=== PATIENT | female | born 1990 | race Caucasian/White ===

== ENCOUNTER 2023-02-09 14:45 | Emergency (ER) | payer SELFPAY ==
[~2023-02-09] VITALS: Ht 160 cm; Wt 77.0 kg
[2023-02-09 14:55] VITALS: BP 150/78
[2023-02-09] MEDS ORDERED: MAGNESIUM/ALUMINUM HYDROXIDE/SIMETHICONE 30ML UDC PO STA (15:14)
[2023-02-09] MEDS ORDERED: VISCOUS LIDOCAINE 2% 15 ML UDC PO STA (15:14)
[2023-02-09] MEDS ORDERED: ONDANSETRON 4MG ODT PO STA (15:14)
[2023-02-09] MEDS ORDERED: ACETAMINOPHEN 325MG TABLET PO ONE (15:15)
[2023-02-09] MEDS ORDERED: FAMOTIDINE 20MG TABLET PO ONE (15:15)
[2023-02-09 15:32] LABS: EOSINOPHILS % 4.4 % (0.0-5.0); HEMATOCRIT. 43.6 % (36.0-48.0); HEMOGLOBIN. 14.8 g/dL (12.0-16.0); LYMPHOCYTES % 38.7 % (20.0-50.0); MEAN CORPUSCULAR HEMOGLOBIN 29.9 pg (28.0-32.0); MEAN CORPUSCULAR VOLUME 87.9 fL (81.0-99.0); MEAN PLATELET VOLUME 6.8 fl (7.4-10.4); MONOCYTES % 12.9 % (2.0-8.0); PLATELET 165 x1000/uL (130-400); RED BLOOD CELL COUNT 4.96 mill/uL (4.2-5.4); RED CELL DISTRIBUTION WIDTH 15.7 % (11.6-14.6)
[2023-02-09 15:37] LABS: CHLORIDE 106 mEq/L (98-107)
[2023-02-09 15:38] LABS: CLARITY URINE CLEAR (CLEAR); COLOR URINE YELLOW (YELLOW); KETONES URINE NEGATIVE (NEGATIVE); LEUKOCYTE ESTERASE URINE NEGATIVE (NEGATIVE); NITRITE URINE NEGATIVE (NEGATIVE); OCCULT BLOOD URINE NEGATIVE (NEGATIVE); PH URINE 5.5 (4.5-8.0); PROTEIN URINE NEGATIVE (NEGATIVE); SPECIFIC GRAVITY URINE 1.005 (1.005-1.030); UROBILINOGEN URINE 0.2 E.U./dL (0.2-1.0)
[2023-02-09 15:55] LABS: *AMPHETAMINES SCREEN URINE NEGATIVE (NEGATIVE); *BARBITURATES SCREEN URINE NEGATIVE (NEGATIVE); *COCAINE SCREEN URINE NEGATIVE (NEGATIVE); CANNABINOID URINE SCREEN NEGATIVE (NEGATIVE); METHADONE URINE SCREEN NEGATIVE (NEGATIVE); OPIATES URINE SCREEN NEGATIVE (NEGATIVE); PHENCYCLIDINE URINE SCREEN NEGATIVE (NEGATIVE)
[2023-02-09 16:02] LABS: *BENZODIAZEPINES SCREEN URINE PRESUMTIVE POSITIVE (NEGATIVE); HCG SCREEN NEGATIVE
== END 2023-02-09 15:49 | disposition home or self-care (01) ==
LOC: ER 14:45
DX: F10.129 Alcohol abuse with intoxication, unspecified (principal); I10 Essential (primary) hypertension; F32.A Depression, unspecified; Z88.5 Allergy status to narcotic agent; Z87.891 Personal history of nicotine dependence; Y90.9 Presence of alcohol in blood, level not specified
CPT/HCPCS: 36415; 80053; 80305; 81003; 83690; 84703; 85025; 99284; Q0162

== ENCOUNTER 2023-02-09 16:37 | Emergency (ER) | payer SELFPAY ==
[~2023-02-09] VITALS: Ht 162.6 cm; Wt 75.0 kg
[2023-02-09 16:39] VITALS: BP 148/78
== END 2023-02-09 17:47 | disposition home or self-care (01) ==
LOC: ER 16:37
DX: F10.10 Alcohol abuse, uncomplicated (principal); F32.A Depression, unspecified; I10 Essential (primary) hypertension; Z87.891 Personal history of nicotine dependence; Z88.5 Allergy status to narcotic agent; Y90.9 Presence of alcohol in blood, level not specified
CPT/HCPCS: 99281

== ENCOUNTER 2023-02-09 21:12 | Emergency (ER) | payer SELFPAY ==
[~2023-02-09] VITALS: Ht 149.9 cm; Wt 91.0 kg
[2023-02-09 21:52] VITALS: BP 145/74
== END 2023-02-10 02:34 | disposition left against medical advice (07) ==
LOC: ER 21:20
DX: R07.9 Chest pain, unspecified (principal); Z53.21 Procedure and treatment not carried out due to patient leaving prior to being seen by health care provider
CPT/HCPCS: 93005; 99281